=== PATIENT | male | born 1960 | race Caucasian/White ===

== ENCOUNTER 2020-01-01 11:12 | Outpatient (REF) | payer OTHER, SELFPAY | END 2020-01-01 11:13 | disposition home or self-care (01) | LOC: HO.WFDLDS 11:12 | PROVIDERS: PCP Internal Medicine; Visit Provider Internal Medicine | DX: Z20.828 Contact with and (suspected) exposure to other viral communicable diseases (principal) | CPT/HCPCS: 87635 ==

== ENCOUNTER 2021-01-13 12:20 | Outpatient (REF) | payer OTHER, SELFPAY | END 2021-01-13 12:21 | disposition home or self-care (01) | LOC: HO.WFDLDS 12:20 | PROVIDERS: Visit Provider Internal Medicine | DX: Z20.822 Contact with and (suspected) exposure to COVID-19 (principal) | CPT/HCPCS: C9803; U0003; U0005 ==

== ENCOUNTER 2021-03-06 08:19 | Outpatient (REF) | payer OTHER, SELFPAY | END 2021-03-06 08:20 | disposition home or self-care (01) | LOC: HO.WFDLDS 08:19 | PROVIDERS: Visit Provider Internal Medicine | DX: Z20.822 Contact with and (suspected) exposure to COVID-19 (principal) | CPT/HCPCS: C9803; U0003; U0005 ==

== ENCOUNTER 2023-11-29 10:25 | Day surgery (SDC) | payer OTHER, SELFPAY ==
[2023-11-25 14:39] VITALS: BMI 26.1
--- OUTSIDE RECORDS SUMMARY | 2023-11-29 10:28 | XMS_ITS ---
Author Organization [facility] Address [address] [place] [id number] Care Team Providers Care Makeup Sales Advisor Name Role Phone Erlin López MD Primary Care Provider Tanner Andres Unavailable [phone] ALLERGIES No Known Allergies REASON FOR VISIT Patient presents today for a COLON SCREENING MEDICATIONS Medication SIG (Take, Route, Frequency, Duration) Notes Start Date End Date Status valACYclovir HCl 1 GM Oral for 2 prn clold sores Active Propranolol HCl ER 80 MG TAKE 1 CAPSULE BY MOUTH EVERY DAY Oral for 90 Active diazePAM 5 MG Oral for 20 prn/ anxiety A ctive Propranolol HCl 20 MG TAKE 1 TABLET BY MOUTH EVERY DAY NEEDED BEFORE STRESSFUL SITUATION Oral for 30 prn /blood pressure testing Active SOCIAL HISTORY Tobacco Use: Social History Observation Description Date Details (start date - stop date) Never Smoker NA - NA Sex Assigned At : Social History Observation Description Sex Assigned At Unknown Tobacco Use/Smoking Question Answer Notes Patient is a nonsmoker Alcohol Screen Question Answer Notes Did you have a drink contain ing alcohol in the past year? Yes How often did you have a dri nk containing alcohol in the past year? Never (0 point) How many drinks did you have on a typical day when you were drinking in the past year? 1 or 2 drinks (0 point) How often did you have 6 or more drinks on one occasion in the past year? Never (0 point) Points 0 Interpretation Negative PROBLEMS Problem Type ICD Code Onset Dates Problem Status W/U Status Risk SNOMED Code Notes Problem Colon cancer screening (Z12.11) Active confirmed Colon cancer screening (418444496) Problem Encounter for other preprocedural examination (Z01.818) Active confirmed Pre-procedure evaluation check (683479560) Problem Personal history of colonic polyps (Z86.010) Active confirmed History of polyp of colon (situation) (683217980) VITAL SIGNS BMI 26.12 kg/m2 09/14/2023 Blood pressure systolic 00 mm Hg 09/14/19 24 Blood pressure diastolic 00 mm Hg 024 Height 6 ft 1 in in 09/14/2023 Weight 198 lbs 09/14/2023 Encounters Encounter Location Date Provider Diagnosis [facility] [address] [place] [address] 09/14/2023 Tanner Elizabeth Colon cancer screeni ng Z12.11 ; Encounter for other preprocedural examination Z01.818 and Personal history of colonic polyps Z86.010 ASSESSMENTS Encounter Date Diagnosis Assessment Notes Treatment Notes Treatment Clinical Notes 09/14/2023 Colon cancer screening (ICD-10 - Z12.11) 09/14/2023 Encounter for other preprocedural examination (ICD-10 - Z01.818) 09/14/2023 Personal history of colonic polyps (ICD-10 - Z86.010) PLAN OF TREATMENT Future Test Test Name Order Date COLONOSCOPY 09/25/2023 Next Appt Details Follow Up: prn, Reason: Provider Name:Tanner Elizabeth , 11/29/2023 12:50:00 PM, [address] [place] [address], [phone], Progress Notes * Examination Category Sub-Category Detail Notes General Examination GENERAL APPEARANCE: pleasant , well nourished, well developed, in no acute distress HEAD: EYES: sclera non-icteric EARS: NOSE: THROAT: NECK/THYROID: no cervical lymphade nopathy, neck supple HEART: S1, S2 normal CHEST: LUNGS: clear to auscultatio n bilaterally ABDOMEN: normal bowel sounds, no guarding or rigidity, no guarding or rigidity, no masses palpable, soft, nontender, nondistended NEUROLOGIC: alert and oriented SKIN: nonjaundiced, no spi maria e angiomata EXTREMITIES: no edema PERIPHERAL PULSES: BACK: BREASTS: MUSCULOSKELETAL: MALE GENITOURINARY: LYMPH NODES: RECTAL EXAM: FEMALE GENITOURINARY: ORAL CAVITY: mucosa moist
--- OUTSIDE RECORDS SUMMARY | 2023-11-29 10:28 | XMS_ITS | Patient Health Record ---
Author Organization [facility] Address [address] [place] [id number] Care Team Providers Care Microsoft Crm Developer Name Role Phone Erlin López MD Primary Care Provider Tanner Andres Unavailable [phone] ALLERGIES No Known Allergies REASON FOR REFERRAL No Information MEDICATIONS Medication SIG (Take, Route, Frequency, Duration) [...] screening (Z12.11) Active confirmed Colon cancer screening (153924264) Problem Encounter for other preprocedural examination (Z01.818) Active confirmed Pre-procedure evaluation check (356818549) Problem Personal history of colonic polyps (Z86.010) Active confirmed History of polyp of colon (situation) (118278674) VITAL SIGNS Blood pressure diastolic 00 mm Hg 09/14/2023 Height 6 ft 1 in in 09/14/2023 Blood pressure systolic 00 mm Hg 09/14/2023 Weight 198 lbs 09/14/2023 BMI 26.12 kg/m2 09/14/2023 Encounters Encounter Location Date Provider Diagnosis [facility] [address] [place] [id number] 11/29/2023 Tanner Elizabeth [facility] [address] [place] [address] 09/14/2023 Tanner Clara Colon cancer screeni ng Z12.11 ; Encounter [...] Order Date COLONOSCOPY 09/25/2023 Next Appt Details Provider Name:Tanner Elizabeth , 11/29/2023 12:50:00 PM, [address] [place] [address] , [place], [place], [phone], Insurance Providers Payer Name Payer Address Payer Phone Subscriber Number Group Number Insured Name Patient Relationship to Insured Coverage Start Date Coverage End Date [facility] ([employer]) [address] [place] [id number] [phone] [id number] LISBETH ALBRIGHT Self - patient is the insured MEDICAL (GENERAL) HISTORY Medical History History ICD Code 2 Colon polyps removed in 07/[address] Luana Jones 2 negative colonoscopies prior to the ab ove with Dr. Braswell Denies GA,DM,CVA,Lung disease,renal dise ase HTN--? anxiety related Surgical History Surgery Date(Month/Year) hernia repair
--- OUTSIDE RECORDS SUMMARY | 2023-11-29 10:28 | XMS_ITS ---
Author Organization [facility] Address [address] [place] [address] Care Team Providers Care Photographic Machine Operator Name Role Phone Erlin López MD Primary Care Provider Tanner Andres Unavailable [phone] REASON FOR VISIT screening,hx polyps Encounters Encounter Location Date Provider Diagnosis [facility] [address] [place] [phone] 11/29/2023 Tanner Elizabeth PLAN OF TREATMENT Next Appt Details Provider Name:Tanner Elizabeth , 11/29/2023 12:50:00 PM, [address] [place] [address], [phone],
[2023-11-29 10:35] VITALS: BMI 26.0
[2023-11-29 10:51] VITALS: BP 166/98; PULSE 84; RESP 18; TEMP 36.4; O2SAT 98
[2023-11-29] MEDS: Lactated Ringers 1,000 ML 100 ML IVCONT (11:05)
--- NOTE | 2023-11-29 12:15 | HO.ANESPROP2 ---
Documented by User: Brooklynn Izquierdo NP 11/26/23 07:35 HPI - Anesthesia Eval Consult details Narrative: 63yo M for Colonoscopy [facility] Past Medical History Medical History Anxiety HTN (hypertension) Surgical History Surgical History Hx of hernia repair Hx of hernia repair H/O colonoscopy Social History Social History (Updated 11/25/23 @ 14:37 by Yesica Engel RN) Household Members: Spouse Are you a primary patient care provider to a significant other at home: No Do you presently have visiting nurse or other home services: No Patient Tobacco Use Status: Never used Tobacco Use of substances other than those prescribed or required for medical reasons: No Have you been hit, kicked, punched, or otherwise hurt by someone within the past year? If so, by whom?: No Are you DNR?: No Advance Directives: No Advance Directives Information Provided: Yes Recently lost weight without trying: No Nutrition Risks: No Nutritional Risk Poor oral hygiene: No Meds Allergies Allergy/AdvReac Type Severity Reaction Status Date / Time No Known Allergies Allergy Verified 11/25/23 14:36 Home Medications ?Medication ?Instructions ?Recorded ?Confirmed ?Last Taken ?Type diazepam 5 mg tablet 5 mg PO DAILY PRN anxiety 11/25/23 11/25/23 Unknown History propranolol 80 mg capsule,24 80 mg PO DAILY 11/25/23 11/29/23 11/29/23 09:00 History hr,extended release valacyclovir 1 gram tablet 2,000 mg PO BID cold sores 11/25/23 11/25/23 Unknown History Exam Height,Weight and Vital Signs: Height 6 ft 1 in Weight 89.811 kg Assessment and Plan Assessment Anesthesia Assessment: Chart Reviewed Documented by User: Margareth Simon DO 11/29/23 12:47 [facility] Past Medical History Medical History Anxiety HTN (hypertension) Family History Family history of problems with anesthesia: No Surgical History Surgical History Hx of hernia repair Hx of hernia repair H/O colonoscopy History of Problems with Anesthesia: No Social History Social History (Updated 11/25/23 @ 14:37 by Yesica Engel RN) Household Members: Spouse Are you a primary patient care provider to a significant other at home: No Do you presently have visiting nurse or other home services: No Patient Tobacco Use Status: Never used Tobacco Use of substances other than those prescribed or required for medical reasons: No Have you been hit, kicked, punched, or otherwise hurt by someone within the past year? If so, by whom?: No Are you DNR?: No Advance Directives: No Advance Directives Information Provided: Yes Recently lost weight without trying: No Nutrition Risks: No Nutritional Risk Poor oral hygiene: No Meds Allergies Allergy/AdvReac Type Severity Reaction Status Date / Time No Known Allergies Allergy Verified 11/25/23 14:36 Home Medications ?Medication ?Instructions ?Recorded ?Confirmed ?Last Taken ?Type diazepam 5 mg tablet 5 mg PO DAILY PRN anxiety 11/25/23 11/25/23 Unknown History propranolol 80 mg capsule,24 80 mg PO DAILY 11/25/23 11/29/23 11/29/23 09:00 History hr,extended release valacyclovir 1 gram tablet 2,000 mg PO BID cold sores 11/25/23 11/25/23 Unknown History Exam Exam Date and Time: 11/29/23 1215 Height,Weight and Vital Signs: Height 6 ft 1 in Weight 89.811 kg Vital Signs Temperature 97.6 F 11/29/23 10:51 Pulse Rate 84 11/29/23 10:51 Respiratory Rate 18 11/29/23 10:51 Blood Pressure 166/98 H 11/29/23 10:51 Pulse Oximetry 98 11/29/23 10:51 Oxygen Delivery Method Room Air 11/29/23 10:51 Temperature 97.6 F 11/29/23 10:51 Pulse Rate 84 11/29/23 10:51 Respiratory Rate 18 11/29/23 10:51 Blood Pressure 166/98 H 11/29/23 10:51 Pulse Oximetry 98 11/29/23 10:51 Oxygen Delivery Method Room Air 11/29/23 10:51 Airway Mallampati Class: II TM Dist: >3cm Neck ROM: Full Loose/Missing/Broken Teeth: No (patient denies any loose or broken teeth) Heart: S1S2 Lungs: CTAB Assessment and Plan Assessment Anesthesia Assessment: Anesthesia Plan Discussed and Chart Reviewed Final Anesthetic Review Family History of Problems with Anesthesia: No History of Problems with Anesthesia: No NPO: Yes ASA Class: II Final Preanesthetic Review: No Changes in Pt Med Stat, Meds/Allgs Chart Reviewed, Consent Obtained/Reviewed and Anes Risks/Benef Reviewed Patient Risk: Low Procedure Risk: Low Anesthetic Plan Anesthetic Plan: MAC: and Agree w/ Assess. and Plan Disposition: Standard PACU
[2023-11-29 13:36] VITALS: BP 104/67; PULSE 81; RESP 16; TEMP 37.1; O2SAT 98
--- NOTE | 2023-11-29 13:39 | PM.OP ---
Brief Operative Note Date of Service: 11/29/23 Pre-op diagnosis: Screening Post-op diagnosis: other (Colon polyps) Procedure: Colonoscopy to the cecum and TI with hot snare polypectomy x 1 and cold snare polypectomy x 1 Surgeon: Tanner Elizabeth MD Anesthesia: MAC Was an Sales Secretary used for this Procedure?: No Estimated blood loss (mL): 2.0 Pathology: other (A. Polyps at 40cm) Condition: stable Disposition: PACU
[2023-11-29 13:51] VITALS: BP 109/77; PULSE 81; RESP 16; TEMP 37.1; O2SAT 98
--- NOTE | 2023-11-29 13:58 | OP_ITS ---
DATE OF SERVICE: 11/29/2023 SURGEON: Tanner Elizabeth MD INDICATIONS: The patient presents for evaluation of personal history of colon polyps and colorectal cancer screening. Full consent has been obtained from him for this, including risks of bleeding and perforation. PREOPERATIVE DIAGNOSIS: Colorectal cancer screening and personal history of colon polyps. POSTOPERATIVE DIAGNOSIS: PROCEDURE PERFORMED: Colonoscopy to cecum and terminal ileum with cold snare polypectomy and hot snare polypectomy. ESTIMATED BLOOD LOSS: COMPLICATIONS: ANESTHESIA: Monitored anesthesia care. ASSISTANTS: SPECIMENS: POSTOPERATIVE DIAGNOSES: Colorectal cancer screening and personal history of colon polyps, colon polyps, diverticulosis, and internal hemorrhoids. DESCRIPTION OF PROCEDURE: The patient was placed in the left lateral decubitus position. Position. The digital rectal exam revealed no abnormalities. The Olympus video pediatric colonoscope was entered into the rectum and advanced easily to the cecum. Once in the cecum, I did identify normal-appearing cecal pouch with appendiceal orifice and a normal-appearing ileocecal valve. The terminal ileum was cannulated and appeared normal. The scope was withdrawn back in the colon. The entire cecum and ileocecal valve appeared normal. The scope was then slowly withdrawn assessing all mucosal surfaces carefully. Preparation was excellent. At 40 cm were 2 polyps. One was approximately 5 mm in diameter and removed by cold snare polypectomy and recovered by suction. The polypectomy site appeared clean, without any sign of residual polyp nor bleeding. In the same area was another slightly larger polyp of about 8 mm in diameter, and this was removed by hot snare polypectomy. This was recovered by suction. The polypectomy site appeared clean, without any sign of residual polyp nor bleeding. I did not visualize any other polyps, colitis, nor angiodysplasia. There was a mild amount of sigmoid diverticulosis. In the rectum, scope was retroflexed visualizing internal hemorrhoids but no other pathology. The rectal mucosa appeared normal. The scope was straightened and withdrawn from the patient. He tolerated the procedure well and was returned to the recovery area in stable condition. IMPRESSION: 1. Colon polyps. 2. Diverticulosis. 3. Internal hemorrhoids. PLAN: The results of the pathology will be checked I would recommend a repeat colonoscopy in 5 years. He was advised not to use any aspirin and NSAIDs for 1 week. This has been discussed with his . MD SILVANA Ponce/LESLIE / [id number]
== END 2023-11-29 14:16 | disposition home or self-care (01) ==
PROVIDERS: PCP Internal Medicine; Visit Provider Internal Medicine
PROC: 0DJD8ZZ Inspection of Lower Intestinal Tract, Via Natural or Artificial Opening Endoscopic (ICD-10-PCS; CPT 45378; principal; 2023-11-29 12:50)
DX: Z12.11 Encounter for screening for malignant neoplasm of colon (principal); Z86.010 Personal history of colon polyps; D12.5 Benign neoplasm of sigmoid colon; K57.30 Diverticulosis of large intestine without perforation or abscess without bleeding; K64.8 Other hemorrhoids; I10 Essential (primary) hypertension; F41.9 Anxiety disorder, unspecified; Z79.899 Other long term (current) drug therapy; Z98.890 Other specified postprocedural states
CPT/HCPCS: 45385; 88305; J2704